=== PATIENT | male | born 2000 | race African-American/Black ===

== ENCOUNTER 2025-04-12 08:18 | Emergency (ER) | payer OTHER, SELFPAY ==
--- NOTE | 2025-04-12 | ECG_ITS ---
Test Reason : cp Blood Pressure : */* mmHG Vent. Rate : 66 BPM Atrial Rate : 66 BPM P-R Int : 126 ms QRS Dur : 94 ms QT Int : 388 ms P-R-T Axes : 71 72 53 degrees QTcB Int : 406 ms Normal sinus rhythm Normal ECG No previous ECGs available Referred By: Generic ED Physician Electronically Signed By: NEMO WHITING MD
--- NOTE | ~2025-04-12 | XR_ITS ---
EXAMINATION: XR CHEST CLINICAL INFORMATION: CP COMPARISON: None available. TECHNIQUE: Frontal view of the chest was obtained. FINDINGS: No significant abnormality is noted involving the heart, lungs, mediastinum, bony thorax or soft tissues. XR/XR chest 1V IMPRESSION: Unremarkable examination. Electronically signed by: Hilary Doss MD 04/12/2025 09:16 AM EDT RP
[2025-04-12 08:27] VITALS: BP 137/74; PULSE 78; RESP 20; TEMP 36.6; O2SAT 96; BMI 17.9
[2025-04-12 09:07] LABS: MANUAL DIFF FLAG NO
[2025-04-12 09:13] LABS: Hematocrit 41.7 % (42.0-52.0); Hemoglobin 14.0 g/dl (14.0-18.0); Imm Gran Abs Auto 0.01 X10*3/uL (0.00-0.03); Imm Gran Pct Auto 0.2 % (0.0-0.4); Lymphocytes Absolute Auto 1.2 X10*3/uL (1.2-4.9); Mean Corpuscular HGB Conc 33.6 g/dl (31.0-36.0); Mean Corpuscular Hemoglobin 29.9 pg (27.0-33.0); Mean Corpuscular Volume 88.9 fL (80.0-98.0); NRBC Abs Auto 0.000 X10*3/uL (0.0-0.012); NRBC Pct Auto 0.0 /100WBC (0.0-0.2); Platelet Count 182 X10*3/uL (160-400); Red Blood Count 4.69 X10*6/uL (4.60-5.80); White Blood Count 4.9 X10*3/uL (4.8-10.8)
[2025-04-12 09:24] LABS: Alanine Aminotransferase 20 U/L (0-40); Albumin Level 4.6 g/dL (3.5-5.0); Alkaline Phosphatase 62 U/L (39-117); Anion Gap 11 (12-20); Aspartate Amino Transferase 20 U/L (5-37); Blood Urea Nitrogen 11 mg/dL (9-16); Calcium 9.2 mg/dL (8.4-10.2); Carbon Dioxide 28 mmol/L (22-29); Chloride 108 mmol/L (96-108); Creatinine Clr Calc Pharmacy 117.8; Estimated Glomerular Filt Rate > 60; Potassium 3.9 mmol/L (3.3-5.1); Sodium 143 mmol/L (135-145); Total Protein 7.0 g/dL (6.5-8.0)
[2025-04-12 09:31] LABS: Troponin-I High Sensitivity 3.0 ng/L (<3.5-35.0)
[2025-04-12 09:37] LABS: COVID-19 Test Negative (Negative); IDNOW Serial# 152EDE1D
[2025-04-12 09:38] LABS: IDNOW Serial# 16C4AD1C; Influenza B2 Negative (Negative)
--- NOTE | 2025-04-12 09:58 | ED.CHESTPAIN ---
HPI - Chest Pain General Chief Complaint: Chest Pain Stated Complaint: CP Time Seen by Provider: 04/12/25 09:39 Source: patient, RN notes reviewed and old records reviewed Mode of arrival: ambulatory Limitations: no limitations History of Present Illness ED Provider: DONNA Polo HPI narrative: 24-year-old male without medical history presents to the ED due to 2 days of left-sided chest pain that radiates down the L arm. Patient states chest pain is associated with palpitations and can come on while at rest or while being active. Patient states yesterday while sitting and watching TV he felt an ache like pain in the L elbow that radiated into the shoulder and into the L side of the neck. He states these episodes can last 30 seconds to 1 minute at a time and is not associated with nausea, vomiting, SOB, diaphoresis, dizziness, lightheadedness, syncope. Patient states he has had episodes like this in the past approximately 1 year ago and was supposed to follow up with cardiology but was unable to due to not having health insurance. Patients symptoms have resolved by the time I went to speak with him. Denies recent illness. Related Data Allergies Allergy/AdvReac Type Severity Reaction Status Date / Time No Known Allergies Allergy Verified 04/12/25 08:28 Review of Systems Review of Systems: CONST: Negative for fever, body aches and chills. HENT: Negative for neck pain/stiffness, headache, congestion, sore throat, swelling. EYES: Negative for discharge/pain or vision changes. RESP: Negative for cough/hemoptysis and shortness of breath. CV: Negative chest pain, difficulty breathing, palpitations. ABD: Negative pain, nausea, vomiting. : Negative increase frequency, dysuria, blood in urine or stool. MUSC: Negative for muscle aches, edema. SKIN: Negative rash, lesions/sores. NEURO: Negative headache, dizziness, weakness. Yes all other systems are reviewed and are negative PMFSH Past Medical History Attestation statement: The following information was validated with the patient. Source: old records reviewed and nursing notes reviewed Social History Social History Advance Directives: No Advance Directives Information Provided: No Physical Exam Vital Signs: Vital Signs: Last Vital Signs Temp 98 F 04/12/25 11:03 Pulse 55 04/12/25 11:03 Resp 18 04/12/25 11:03 BP 119/56 L 04/12/25 11:03 Pulse Ox 97 04/12/25 11:03 O2 Del Method Room Air 04/12/25 11:03 BMI result Body Mass Index 17.9 GENERAL APPEARANCE: ?AxOx4, generally well-appearing, no acute distress. HEENT: ?NC, AT. MMM. EOMI, clear conjunctiva, oropharynx clear. NECK: ?Supple without lymphadenopathy.? No stiffness or restricted ROM. HEART:? Normal rate and regular rhythm, normal S1/S2, no m/r/g LUNGS:? CTAB, moving air well. No crackles or wheezes are heard. ABDOMEN: ?Soft, nontender, nondistended BACK: No CVAT, no obvious deformity. EXTREMITIES: ?Without cyanosis, clubbing or edema. NEUROLOGICAL: ?Grossly nonfocal. Alert and oriented, moving all 4 extremities. Observed to ambulate with normal gait. Skin: ?Warm and dry without any rash. Medical Decision Making Medical Decision Making MDM Narrative: 24-year-old male without medical history presents to the ED due to 2 days of left-sided chest pain that radiates down the L arm. Patient states chest pain is associated with palpitations and can come on while at rest or while being active. Patient states yesterday while sitting and watching TV he felt an ache like pain in the L elbow that radiated into the shoulder and into the L side of the neck. He states these episodes can last 30 seconds to 1 minute at a time and is not associated with nausea, vomiting, SOB, diaphoresis, dizziness, lightheadedness, syncope. Patient states he has had episodes like this in the past approximately 1 year ago and was supposed to follow up with cardiology but was unable to due to not having health insurance. Patients symptoms have resolved by the time I went to speak with him. Denies recent illness. VS on initial observation-BP 137/74, pulse rate of 78, respiratory rate of 20, afebrile with oral temp of 98?, O2 saturation 96% on room air. Physical exam is unremarkable, lungs clear to auscultation bilaterally, cardiac exam with a normal rate and rhythm, no murmurs/rubs/gallops, abdomen is soft, nontender, nondistended, no swelling of the lower extremities. Patient is able to ambulate without ataxic/antalgic gait Labs without leukocytosis/leukopenia, no evidence of anemia H and H stable, no electrolyte abnormalities EKG normal sinus rhythm, without ST-elevation/depression, T-wave abnormality, lengthened QT, initial troponin WNL at 3.0, 2nd troponin WNL at 2.9, patient without chest pain Patient with left-sided intermittent chest pain with sensation of palpitations that radiates down the left arm, not associated with nausea, vomiting, light headedness, dizziness, diaphoresis, syncope. Chest pain does not follow a pattern and can begin while active or at rest. Patient with history of chest pain, says this feels similar to past episodes. Patient was referred to cardiology in the past but has not followed up due to lack of health insurance. When I came to evaluate the patient in the department his symptoms had subsided. Patient is hemodynamically stable. Patient states he now has health insurance and can follow up with Cardiology. I counseled patient that he needs further evaluation with Cardiology and possible Holter monitor/stress test for further evaluation of atypical chest pain. I have provided referral to Cardiology and to primary care for patient to follow up with. I counseled patient on strict return precautions. Patient is in agreement with the plan. Differential Diagnosis Differential Diagnoses: The differential diagnosis associated with the presentation includes ACS Pericarditis Pneumothorax Dysrhythmia Electrolyte abnormality Atypical chest pain Admission/Observation Consideration of admission/observation: Escalation of care including admission/observation considered Lab Data MDM Lab Attestation statement: I reviewed the patient's lab results. 04/12/25 09:04 04/12/25 09:04 Labs: Lab Results 04/12/25 04/12/25 Range/Units 09:04 11:26 WBC 4.9 (4.8-10.8) X10*3/uL RBC 4.69 (4.60-5.80) X10*6/uL Hgb 14.0 (14.0-18.0) g/dl Hct 41.7 L (42.0-52.0) % MCV 88.9 (80.0-98.0) fL MCH 29.9 (27.0-33.0) pg MCHC 33.6 (31.0-36.0) g/dl RDW 12.6 (11.0-16.0) % Plt Count 182 (160-400) X10*3/uL MPV 11.8 (9.4-12.4) fL Immature Gran % (Auto) 0.2 (0.0-0.4) % Neut % (Auto) 63.1 (45-73) % Lymph % (Auto) 24.0 (20-40) % [place] % (Auto) 10.5 (2-11) % Eos % (Auto) 1.8 (0-4) % Baso % (Auto) 0.4 (0-2) % Lymph # (Auto) 1.2 (1.2-4.9) X10*3/uL [place] # (Auto) 0.5 (0.1-1.2) X10*3/uL Eos # (Auto) 0.1 (0.0-0.4) X10*3/uL Baso # (Auto) 0.0 (0.0-0.2) X10*3/uL Abs Immat Gran (auto) 0.01 (0.00-0.03) X10*3/uL Absolute Neuts (auto) 3.1 (2.0-8.3) x10*3/uL Absolute Nucleated RBC 0.000 (0.0-0.012) X10*3/uL Nucleated RBC % (auto) 0.0 (0.0-0.2) /100WBC Sodium 143 (135-145) mmol/L Potassium 3.9 (3.3-5.1) mmol/L Chloride 108 (96-108) mmol/L Carbon Dioxide 28 (22-29) mmol/L Anion Gap 11 L (12-20) BUN 11 (9-16) mg/dL Creatinine 0.93 (0.5-1.4) mg/dL Estim Creat Clear Calc 117.8 Estimated GFR > 60 Random Glucose 88 (60-115) mg/dL Calcium 9.2 (8.4-10.2) mg/dL Total Bilirubin 0.5 (0.0-1.0) mg/dL AST 20 (5-37) U/L ALT 20 (0-40) U/L Alkaline Phosphatase 62 (39-117) U/L Troponin I High Sens 3.0 2.9 (<3.5-35.0) ng/L Total Protein 7.0 (6.5-8.0) g/dL Albumin 4.6 (3.5-5.0) g/dL COVID-19 (CRISTAL) Negative (Negative) COVID-19 Clin Com See Note Influenza Type A (EMMA) Negative (Negative) Influenza Type B (EMMA) Negative (Negative) Influenza A & B Note See Note Independent Interpretation I performed an independent interpretation of an: EKG Interpretation: I personally interpreted the EKG which revealed normal sinus rhythm without ST-elevation/depression, T-wave abnormality, lengthened QT Vent. Rate : 66 BPM Atrial Rate : 66 BPM P-R Int : 126 ms QRS Dur : 94 ms QT Int : 388 ms P-R-T Axes : 71 72 53 degrees QTcB Int : 406 ms Normal sinus rhythm Normal ECG No previous ECGs available I personally interpreted the CXR which was negative for acute cardiopulmonary processes, I agree with the radiologist's interpretation Radiology Impression Discussion of test interpretation with radiology: I have reviewed the radiologist's reading. Radiologist Impression: CXR FINDINGS: No significant abnormality is noted involving the heart, lungs, mediastinum, bony thorax or soft tissues. XR/XR chest 1V IMPRESSION: Unremarkable examination. Electronically signed by: Hilary Doss MD 04/12/2025 09:16 AM EDT RP Dictated By: Hilary Doss MD Signed By: <Electronically signed by Hilary Doss MD in OV> 04/12/25 0916 External Record Review External record reviewed: Inpatient record, Office record and Outpatient record Chronic Conditions Patient?s care impacted by: Other (No known medical history) Social Determinants Patient?s care significantly limited by Social Determinants of Health including: Other Social Determinant of Health Discharge Plan Discharge Clinical Impression: Atypical chest pain Patient Disposition: Home, Self-Care Additional Instructions: You were evaluated in the ED today due to chest pain. Your lab was negative for infection or anemia, there was no electrolyte abnormality. Your EKG was normal, your troponin which is a protein that the heart gives off when under stress or damage was within normal limits today. Your chest x-ray was normal. I have provided referral to Cardiology and primary care for you. You need to call their office as they will not call you. I encourage you to follow up with Cardiology as you may need additional testing such as Holter monitor/stress test for further evaluation of your chest pain. Please return to the emergency department if you experience worsening chest pain, nausea, vomiting, fevers over 100.4?, or any new/worsening/concerning symptoms. Referrals: [facility] [Provider Group] [facility], [place] [Provider Group, Internal Medicine] Cortes Carrington MD [Physician, Internal Medicine] Tre Penn PA-C [Physician [employer] Administrator, Primary Care] [facility] [Provider Group, Family Practice] Edy Gruber DO [Physician, Family Practice] Print Language: Chinese
[2025-04-12 10:26] VITALS: BP 119/56; PULSE 58; RESP 16; O2SAT 96
--- NOTE | 2025-04-12 10:26 | PC.NURSE ---
Pt roomed and placed on full monitor vss NSR no ectopy. Pt in [facility] states CP comes and goes, is not present right now and it is only lasting 1-1/2 hours a day. [facility] was supposed to f/u with cardiology after last ED visit for same but did not have insurance so he has not yet been seen by cardiology.
[2025-04-12 11:03] VITALS: BP 119/56; PULSE 55; RESP 18; TEMP 36.6; O2SAT 97
[2025-04-12 11:59] LABS: Troponin-I High Sensitivity 2.9 ng/L (<3.5-35.0)
[2025-04-12 12:19] VITALS: BP 131/49; PULSE 62; RESP 17; TEMP 36.7; O2SAT 98
[2025-04-12 12:29] VITALS: BP 131/49; PULSE 62; RESP 17; TEMP 36.7; O2SAT 98
--- OUTSIDE RECORDS SUMMARY | 2025-04-12 13:35 | XMS_ITS | Clinical Summary ---
Author Organization [facility] Address [address] [place] [id number] Phone Care Team Providers Care Quantitative Software Engineer Name Role Phone Pcp, Unknown Primary Care Provider Unavailabl e Allergies No known active allergies Medications diclofenac sodium (SOLARAZE) 3 % GelIndications: Neck muscle spasm Apply topically 2 (two) times a day for 7 days. 100 g Active Active Problems No known active problems Social History Tobacco Use Types Packs/Day Years Used Date Smoking Tobacco: Never Alcohol Use Standard Drinks/Week Comments Not Currently 0 (1 standard drink = 0.6 oz pur e alcohol) Education Answer Date Recorded Are you interested in more education? Not on danielle e 03/19/2023 Are you concerned about learning? Not on file 03/19/2023 No 03/19/2023 No 03/19/2023 Digital Access Answer Date Recorded No 03/19/2023 No 03/19/2023 Reliable internet access at home? Not on file 03/19/2023 Device with a working camera? Not on file Intimate Partner Violence Answer Date R ecorded Are you denied basic needs s uch as food, clothing, or medical care? No 06/16/2024 In the past 12 months have y ou been in a relationship with a person who hurts, threatens, or tries to control you? No 06/16/2024 Are you denied basic needs s uch as food, clothing, or medical care? No 06/16/2024 In the past 12 months have y ou been in a relationship with a person who hurts, threatens, or tries to control you? No 06/16/2024 Sex and Gender Information Value Date Recorded Sex Assigned at Not on file Legal Sex Male 5:17 PM EDT Gender Identity Not on file Sexual Orientation Not on file Last Filed Vital Signs Vital Sign Reading Time Taken Comments Blood Pressure 135/91 10/04/2024 6:37 PM EDT Pulse 76 10/04/2024 6:37 PM EDT Temperature 36.9 C (98.5 F) 10/04/2024 6:37 PM EDT Respiratory Rate 14 06/16/2024 9:52 AM EST Oxygen Saturation 100% 10/04/2024 6:37 PM EDT Inhaled Oxygen Concentration - - Weight 68 kg (150 lb) 10/04/2024 6:37 PM EDT Height 185.4 cm (6' 1 ) 10/04/2024 6:37 PM EDT Body Mass Index 19.79 10/04/2024 6:37 PM EDT Plan of Treatment Health Maintenance Due Date Last Done Comments Adult Td,Tdap Booster 2002 DEPRESSION SCREENING 2014 SMOKING Hx and SMOKELESS TOB ACCO SCREENING 09/29/2015 HPV VACCINES (1 - Male 3-dos e series) 2017 MENINGOCOCCAL VACCINES (B) ( 1 of 2 - Standard) 2018 HEPATITIS C SCREENING 2020 HIV ONE-TIME SCREENING (18-6 5 YEARS) 2020 INFLUENZA VACCINE (#1) 2025 COVID-19 VACCINE (1 - 2024-2 6 season) 2025 HEPATITIS A VACCINES Aged Out No long er eligible based on patient's age to complete this topic HIB VACCINES Aged Out No longer eligi ble based on patient's age to complete this topic MENINGOCOCCAL VACCINES (ACWY) Aged Out No longer eligible based on patient's age to complete this topic PNEUMOCOCCAL VACCINES (0-49 years) Aged Out No longer eligible based on patient's age to complete this topic Medical Devices Not on file Insurance [employer] [place] [facility] [address] [place] Care Teams Quantitative Software Engineer Relationship Specialty Start Date End Date Pcp, Unknown PCP - General 10/05/24 Additional Source Comments The information contained in this document represents components of the legal health record. It is not the complete legal health record.[facility]
== END 2025-04-12 12:31 | disposition home or self-care (01) ==
PROVIDERS: Emergency Provider Emergency Medicine
DX: R07.89 Other chest pain (principal)
CPT/HCPCS: 36415; 71045; 80053; 84484; 85025; 87502; 87635; 93005; 99284

== ENCOUNTER → 2025-04-12 08:20 | Outpatient (BNV) | payer MEDICAID, SELFPAY | PROVIDERS: Emergency Provider Emergency Medicine; Visit Provider Internal Medicine Cardiovascular Disease | DX: R07.89 Other chest pain (principal) | CPT/HCPCS: 93010 ==

== ENCOUNTER → 2025-04-12 09:10 | Outpatient (BNV) | payer MEDICAID, SELFPAY | PROVIDERS: Emergency Provider Emergency Medicine; Visit Provider Radiology Diagnostic Radiology | DX: R07.9 Chest pain, unspecified (principal) | CPT/HCPCS: 71045 ==